=== PATIENT | female | born 1970 | race Caucasian/White ===

== ENCOUNTER 2017-09-30 06:03 | Day surgery (SDC) | payer OTHER ==
[~2017-09-30 06:03] MED LIST: Lactated Ringers 1,000 ML IV ONE; Lactated Ringers 1,000 ML IV SCH
[2017-09-30] MEDS ORDERED: DIPRIVAN 200 MG/20 ML IV ONE (06:04)
[2017-09-30] MEDS ORDERED: Lactated Ringers 1,000 ML IV SCH (07:00)
[2017-09-30] MEDS ORDERED: Lactated Ringers 1,000 ML IV ONE (07:39)
--- NOTE | 2017-09-30 08:43 | OP ---
SURGERY DATE/TIME: 09/30/2017 0739 PREOPERATIVE DIAGNOSIS: Rectal bleeding. POSTOPERATIVE DIAGNOSIS: Normal colon. PROCEDURE: Colonoscopy. SURGEON: Hussein Stewart M.D. ANESTHESIA: MAC by Bryant Wilkins CRNA. ESTIMATED BLOOD LOSS: None. SPECIMENS: None. DESCRIPTION OF PROCEDURE: After informed written consent was obtained, the patient was taken to the endoscopy suite. She underwent monitored anesthesia and a digital rectal exam showed normal sphincter tone and no internal lesions. The scope was inserted into the rectum and sequentially the entire colonic mucosa was traversed. The level of cecum was reached and verified with direct visualization of ileocecal valve. Upon withdrawal careful mucosal inspection revealed no gross abnormalities. Prep was noted to be good. Prior to withdrawal retroflexion was performed and showed no obvious internal lesions. The scope was removed and the patient was transferred to the recovery room in excellent condition.
[2017-09-30 09:32] VITALS: BP 132/79; PULSE 50; O2SAT 98
== END 2017-09-30 09:05 | disposition home or self-care (01) ==
LOC: SDC 06:03
PROVIDERS: ATTEND Family Medicine
DX: K62.5 Hemorrhage of anus and rectum (principal); I10 Essential (primary) hypertension
CPT/HCPCS: 84703; J2704